=== PATIENT | female | born 1985 | race Caucasian/White ===

== ENCOUNTER 2017-06-25 21:30 | Emergency (ER) | payer SELFPAY ==
[~2017-06-25] VITALS: Ht 149.9 cm; Wt 55.7 kg
[~2017-06-25 21:30] MED LIST: DOCU-131 PO; IBUP-1222 PO; PREN1TAB56 PO
[2017-06-25] MEDS ORDERED: HYDROcodone/APAP 5/325 TABLET PO ONE (22:30)
[2017-06-25 22:34] LABS: HEMATOCRIT 39.3 % (34.6-47.8); HEMOGLOBIN 13.5 g/dL (11.7-16.4); WHITE BLOOD COUNT 7.4 x10^3/uL (3.4-10)
[2017-06-25 22:41] LABS: BLOOD UREA NITROGEN 20 mg/dL (7-18)
[2017-06-25 22:52] LABS: PATH.CAST-FLAG NOT PRESENT; SPERM-FLAG NOT PRESENT; SRC-FLAG NOT PRESENT; XTAL-FLAG NOT PRESENT; YLC-FLAG NOT PRESENT
[2017-06-25] MEDS ORDERED: HYDROcodone/APAP 5/325 TABLET ONE (23:01)
[2017-06-26 00:12] VITALS: BP 94/57
== END 2017-06-26 00:13 | disposition home or self-care (01) ==
LOC: ED 23:16
DX: O03.4 Incomplete spontaneous abortion without complication (principal)
CPT/HCPCS: 36415; 76801; 80048; 81001; 82040; 84702; 85025; 99285

== ENCOUNTER 2017-12-21 04:03 | Emergency (ER) | payer SELFPAY ==
[~2017-12-21] VITALS: Ht 149.9 cm; Wt 61.1 kg
[2017-12-21] MEDS ORDERED: METOCLOPRAMIDE 5 MG/ML, 2ML IVPush ONE (05:00)
[2017-12-21] MEDS ORDERED: SODIUM CHLORIDE FLUSH 10ML SYR IVF ONE (05:00)
[2017-12-21] MEDS ORDERED: SODIUM CHLORIDE 0.9% 1,000ML IVBOLUS ONE (05:00)
[2017-12-21] MEDS ORDERED: DIPHENHYDRAMINE 50 MG/ML, 1ML IVPush ONE (05:00)
[2017-12-21] MEDS ORDERED: KETOROLAC 30 MG/1 ML IVPush ONE (05:00)
[2017-12-21] MEDS ORDERED: DIPHENHYDRAMINE 50 MG/ML, 1ML ONE (05:16)
[2017-12-21] MEDS ORDERED: KETOROLAC 30 MG/1 ML ONE (05:16)
[2017-12-21] MEDS ORDERED: METOCLOPRAMIDE 5 MG/ML, 2ML ONE (05:16)
[2017-12-21 06:12] VITALS: BP 118/65
[2017-12-21] MEDS ORDERED: DEXAMETHASONE 4 MG TABLET PO ONE (06:30)
[2017-12-21] MEDS ORDERED: DEXAMETHASONE 4 MG TABLET ONE (06:33)
== END 2017-12-21 06:42 | disposition home or self-care (01) ==
LOC: ED 06:40
DX: R51 Headache (principal)
CPT/HCPCS: 96374; 96375; 99284; J1200; J1885; J2765; J7030